=== PATIENT | female | born 1965 | race Caucasian/White ===

== ENCOUNTER 2023-02-19 23:43 | Emergency (ER) | payer BC ==
[2023-02-19] MEDS ORDERED: predniSONE 20 MG Tab ONE (23:55)
[2023-02-20] MEDS ORDERED: methylPREDNISolone Sodium Succinate 125 MG/2 ML SDV IVPUSH ONE (00:15)
[2023-02-20] MEDS ORDERED: Cetirizine 10 MG Tab PO ONE (00:16)
[2023-02-20] MEDS ORDERED: Famotidine 20 MG Tab PO ONE (00:17)
[2023-02-20] MEDS ORDERED: methylPREDNISolone Sodium Succinate 125 MG/2 ML SDV ONE ×2 (00:41)
[2023-02-20] MEDS ORDERED: predniSONE 20 MG Tab ONE (06:39)
== END 2023-02-20 06:50 | disposition home or self-care (01) ==
LOC: LB.ED 23:43
DX: T78.40XA Allergy, unspecified, initial encounter (principal); I10 Essential (primary) hypertension; E11.9 Type 2 diabetes mellitus without complications; Z79.84 Long term (current) use of oral hypoglycemic drugs
CPT/HCPCS: 96374; 99283; 99283-25; A9270-GY; J2930; J7512